=== PATIENT | male | born 1955 | race Caucasian/White ===

== ENCOUNTER → 2021-04-30 | Outpatient (CLI) | payer BC ==
--- NOTE | 2021-04-30 10:51 | REP ---
INDICATION: PAIN COMPARISON: None. TECHNIQUE: Internal rotation, external rotation, and Y view. FINDINGS: Early advanced degenerative changes at the acromioclavicular joint include cortical irregularity and osteophytosis with small amounts of chondrocalcinosis, periarticular sclerosis and joint space narrowing. The subacromial space is relatively normal. There is moderate osteophytosis involving the glenoid rim primarily along the inferior margin at the 5-6 o'clock position. The humeral head is normal. There is no evidence for acute fracture or dislocation. 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 <Electronically signed by Ger Vasquez > 04/30/21 1044
== END ==
LOC: M WUC 09:23
PROVIDERS: ATTEND Physician Assistant
DX: M25.512 Pain in left shoulder (principal)

== ENCOUNTER → 2022-12-02 | Outpatient (CLI) | payer BC | LOC: M WUC 13:09 | PROVIDERS: ATTEND Internal Medicine | DX: R05.9 Cough, unspecified (principal); R06.2 Wheezing ==

== ENCOUNTER → 2023-01-31 | Outpatient (CLI) | payer BC | LOC: M RAD 16:46 | PROVIDERS: ATTEND Internal Medicine | DX: Z12.2 Encounter for screening for malignant neoplasm of respiratory organs (principal); F17.210 Nicotine dependence, cigarettes, uncomplicated ==

== ENCOUNTER → 2024-10-12 | Outpatient (CLI) | payer MEDICARE | LOC: M RAD 15:19 | PROVIDERS: ATTEND Internal Medicine | DX: Z12.2 Encounter for screening for malignant neoplasm of respiratory organs (principal); F17.210 Nicotine dependence, cigarettes, uncomplicated ==

== ENCOUNTER → 2024-10-21 | Outpatient (CLI) | payer MEDICARE | LOC: M SOG 07:58 | PROVIDERS: ATTEND Physician Assistant | DX: M79.645 Pain in left finger(s) (principal) ==